=== PATIENT | male | born 1945 | race Caucasian/White ===

== ENCOUNTER → 2020-05-12 08:56 | Outpatient (BNVA) | payer MEDICARE, SELFPAY | PROVIDERS: Family Provider Nurse Practitioner Family; PCP Nurse Practitioner Family; Visit Provider Nurse Practitioner Family | DX: E11.9 Type 2 diabetes mellitus without complications (principal); I10 Essential (primary) hypertension; E78.2 Mixed hyperlipidemia; T78.40XA Allergy, unspecified, initial encounter | CPT/HCPCS: 80053; 80061; 82043; 83036 ==

== ENCOUNTER 2020-09-25 15:22 | Outpatient (CLI) | payer MEDICARE, SELFPAY ==
--- NOTE | 2020-09-25 15:45 | USCV_ITS ---
Matty Randle Age: 75 Gender: M : 1945 Exam Date: 09/25/2020 15:30 Ordering Phys: Erasmo Richardson M.D ([email or web address]) Technologist: Elyssa Marie Exam Location: [facility] [place] Indication: Afib BP: 130 / 70 HR: 92 Rhythm: Sinus Technical Quality: Technically difficult study MEASUREMENTS (Male / Female) Normal Values 2D ECHO LV Diastolic Diameter PLAX 5.7 cm 4.2 - 5.9 / 3.9 - 5.3 cm LV Systolic Diameter PLAX 4.6 cm IVS Diastolic Thickness 1.2 cm 0.6 - 1.0 / 0.6 - 0.9 cm IVS Systolic Thickness 1.3 cm LVPW Diastolic Thickness 1.2 cm 0.6 - 1.0 / 0.6 - 0.9 cm LVPW Systolic Thickness 1.5 cm RV Chamber Size 3.1 cm LVOT Diameter 2.0 cm LV Ejection Fraction 2D Teich 30.0 % LV Ejection Fraction MOD 2C 33.7 % LV Ejection Fraction 2C AL 31.8 % LA Diameter 3.2 cm LA Width 4.2 cm LA Height 5.1 cm RA Width 3.8 cm RA Height 5.9 cm Aorta at Sinotubular Diameter 2.0 cm DOPPLER AV Peak Velocity 88.0 cm/s LVOT Peak Velocity 78.0 cm/s AV Area Cont Eq vti 2.4 cm squared AV Area Cont Eq pk 2.8 cm squared TR Peak Velocity 235.0 cm/s TR Peak Gradient 22.1 mmHg TV Peak E Velocity 67.0 cm/s Right Atrial Pressure 3.0 mmHg Pulmonary Artery Systolic Pressu 25.1 mmHg PV Peak Velocity 85.0 cm/s RV Acceleration Time 0.1 s RV Ejection Time 0.3 s RV AcT/ET 0.4 FINDINGS Left Ventricle Left ventricle is dilated. LV systolic function is moderate to severely reduced with EF of 30-35%. Moderate to severe global hypokinesis is noted. Diastolic function is indeterminate because of atrial fibrillation. Right Ventricle The right ventricle is normal in size and function. Right Atrium The right atrium is normal in size. Left Atrium The left atrium is enlarged Mitral Valve Structurally normal mitral valve without significant stenosis or prolapse. There is trace mitral regurgitation. Aortic Valve Structurally normal aortic valve without significant sclerosis or stenosis. There is trace aortic regurgitation. Tricuspid Valve Structurally normal tricuspid valve without significant stenosis. Mild tricuspid regurgitation is noted. Pulmonary artery systolic pressure is normal. Pulmonic Valve Structurally normal pulmonic valve without significant stenosis. There is no pulmonic regurgitation. Pericardium Normal pericardium without effusion. Aorta Normal ascending aorta dimension. CONCLUSIONS Left ventricle is dilated. LV systolic function is moderate to severely reduced with EF 35 to 40%. Moderate to severe global hypokinesis is noted. Diastolic function is indeterminate because of atrial fibrillation. Left atrium is enlarged. Trace mitral regurgitation is seen. Trace aortic regurgitation is noted. Mild tricuspid regurgitation is noted. No comparison studies are available. Erasmo Richardson MD (Electronically Signed) Final Date: 04 October 2020 19:35 S
== END 2020-09-25 15:23 | disposition home or self-care (01) ==
LOC: US 15:24
PROVIDERS: PCP Nurse Practitioner Family; Visit Provider Internal Medicine
DX: I48.91 Unspecified atrial fibrillation (principal)
CPT/HCPCS: 93306

== ENCOUNTER → 2021-02-11 13:59 | Outpatient (BNVA) | payer MEDICARE, SELFPAY | PROVIDERS: PCP Nurse Practitioner Family; Visit Provider Nurse Practitioner Family | DX: E78.5 Hyperlipidemia, unspecified (principal); E11.9 Type 2 diabetes mellitus without complications; I10 Essential (primary) hypertension; E78.2 Mixed hyperlipidemia | CPT/HCPCS: 80053; 80061; 83036 ==

== ENCOUNTER → 2021-07-08 08:42 | Outpatient (BNVA) | payer MEDICARE, SELFPAY | PROVIDERS: PCP Nurse Practitioner Family; Visit Provider Nurse Practitioner Family | DX: E78.5 Hyperlipidemia, unspecified (principal); E11.9 Type 2 diabetes mellitus without complications; I10 Essential (primary) hypertension; E78.2 Mixed hyperlipidemia | CPT/HCPCS: 80053; 80061; 82043; 83036 ==

== ENCOUNTER → 2022-03-23 11:28 | Outpatient (BNVA) | payer MEDICARE, SELFPAY | PROVIDERS: PCP Nurse Practitioner Family; Visit Provider Nurse Practitioner Family | DX: Z79.899 Other long term (current) drug therapy (principal); I10 Essential (primary) hypertension | CPT/HCPCS: 80053; 83036 ==

== ENCOUNTER 2022-08-04 11:08 | Outpatient (CLI) | payer MEDICARE, SELFPAY ==
--- NOTE | 2022-08-04 11:17 | XR_ITS ---
WS: [id number] Exam: XR foot RT min 3V* [id number] Date/Time of Exam: 08/04/2022 11:33 AM Reason For Exam: [id number] - Other injury of unspecified body region, initi... No fracture or dislocation noted. No soft tissue foreign bodies are identified. Hypertrophic spurring seen along the dorsal margin of the tarsal navicular. XR/XR foot RT min 3V* [id number] IMPRESSION: 1. No fracture or dislocation. 2. Prominent bone spur seen along the dorsal margin of the navicular.
== END 2022-08-04 11:09 | disposition home or self-care (01) ==
LOC: RAD 11:10
PROVIDERS: PCP Nurse Practitioner Family; Visit Provider Nurse Practitioner Family
DX: S91.331A Puncture wound without foreign body, right foot, initial encounter (principal); X58.XXXA Exposure to other specified factors, initial encounter
CPT/HCPCS: 73630

== ENCOUNTER → 2022-08-23 07:44 | Outpatient (BNVA) | payer MEDICARE, SELFPAY | PROVIDERS: PCP Nurse Practitioner Family; Visit Provider Podiatrist Foot & Ankle Surgery | DX: E11.621 Type 2 diabetes mellitus with foot ulcer (principal); L97.512 Non-pressure chronic ulcer of other part of right foot with fat layer exposed; E11.42 Type 2 diabetes mellitus with diabetic polyneuropathy; G62.9 Polyneuropathy, unspecified | CPT/HCPCS: 99204 ==

== ENCOUNTER → 2022-09-26 08:15 | Outpatient (BNVA) | payer MEDICARE, SELFPAY | PROVIDERS: PCP Nurse Practitioner Family; Visit Provider Nurse Practitioner Family | DX: R21 Rash and other nonspecific skin eruption (principal) | CPT/HCPCS: 80053; 85025 ==

== ENCOUNTER 2023-01-16 10:13 | Emergency (ER) | payer MEDICARE, SELFPAY ==
--- NOTE | 2023-01-16 10:55 | XR_ITS ---
WS: [id number] PORTABLE CHEST HISTORY: sob COMPARISON: None available. Very minimal hazy attenuation at the lung bases. No dense areas of consolidation. No pleural effusion or pneumothorax. Cardiac size: Normal. Mediastinum/Aorta: Mild atherosclerosis aorta. No osseous abnormality seen. IMPRESSION: Minimal hazy attenuation of the lung bases. Suspect a small amount of interstitial edema or pneumonit is.
[2023-01-16 11:03] VITALS: BP 163/92; PULSE 78; RESP 18; TEMP 36.6; O2SAT 96; BMI 31.0
[2023-01-16 13:53] LABS: Basophils # 0.1 10^3/uL (0.0-0.1); Basophils % 0.7 %; Eosinophils # 0.2 10^3/uL (0.0-0.8); Eosinophils % 2.2 %; Hematocrit 44.6 % (37-53); Lymphocytes # 1.9 10^3/uL (0.8-4.8); Lymphocytes % 22.9 %; Mean Corpuscular HGB Conc 32.7 g/dL (30-55); Mean Corpuscular Hemoglobin 31.1 pg (27-33); Mean Corpuscular Volume 95.1 fl (82-101); Mean Platelet Volume 10.8 fL (7.4-10.4); Monocytes # 0.7 10^3/uL (0.2-0.9); Monocytes % 8.3 %; Neutrophils % 65.7 %; Nucleated Red Blood Cells % 0 %; Platelet Count 217 10^3/cmm (157-399); Red Blood Count 4.69 10^6/uL (3.85-5.65); Red Cell Distribution Width 12.5 % (12.1-15.1); White Blood Count 8.08 10^3/uL (3.29-11.43)
[2023-01-16 14:22] LABS: Alanine Aminotransferase 26 U/L (0-41); Albumin Level 4.3 g/dL (3.5-5.2); Alkaline Phosphatase 86 U/L (40-130); Anion Gap 10.6 (5-19); Aspartate Amino Transferase 23 U/L (0-40); Blood Urea Nitrogen 14 mg/dL (8-23); Calcium 8.9 mg/dL (8.5-10.5); Carbon Dioxide 31 mmol/L (22-29); Chloride 103 mmol/L (98-107); Globulin 2.4 g/dL (1.3-4.6); Glucose 118 mg/dL (65-115); Osmolality Calculated 292 mOsm/kg (285-295); Potassium 4.6 mmol/L (3.5-5.1); Sodium 140 mmol/L (136-145); Total Bilirubin 1.1 mg/dL (0.15-1.2); Total Protein 6.7 g/dL (6.6-8.7)
--- NOTE | 2023-01-16 15:17 | W.ED.SOB ---
HPI - SOB/Dyspnea General: Chief Complaint: Shortness of Breath/Dyspnea Stated Complaint: SOB Time Seen by Provider: 01/16/23 15:17 Source: patient History of Present Illness: HPI Narrative: 77-year-old male presents emergency room with complaint of shortness of breath overnight he is feeling much better with the time he arrives here. States he got worse last night while he is lying down is better after he sat up. He has been told he has congestive heart failure in the past. MD elicited complaint: shortness of breath Pertinent past history: congestive heart failure Onset (ago): hour(s) Associated symptoms: Deny abdominal pain, chest pain or fever(s) Review of Systems Const: Denies: fever(s) or chills Card: Denies: chest pain Resp: Denies: dyspnea GI: Denies: abdominal pain : Denies: dysuria, urinary frequency or urinary urgency Musc: Denies: neck pain or back pain Skin/Breast: Denies: rash PFSH ED PFSH: Medical History Coronary artery disease HTN (hypertension), benign Hyperlipemia Type 2 diabetes mellitus without complication Hx of myocardial infarction Surgical History H/O hernia repair Family History Father CAD (coronary artery disease) Brother Cancer Mother Diabetes Social History Smoking and tobacco/nicotine status: former use of tobacco/nicotine Alcohol intake: never Substance/Drug Use: never Adopted: No Lives independently: Yes Household members: significant other Housing: House Physical Exam Const: GENERAL APPEARANCE: cooperative and comfortable ORIENTATION/CONSCIOUSNESS: Yes awake, Yes oriented to person, Yes oriented to place and Yes oriented to time HENMT: COMMON NORMALS: normocephalic, atraumatic and hearing grossly normal bilaterally HEAD & SCALP: normocephalic and atraumatic Resp: COMMON NORMALS: normal respiratory effort, No retractions and No use of accessory muscles AUSCULTATION: crackles Cardio: COMMON NORMALS: regular rate, regular rhythm and No murmurs present (Cardio) RATE: regular rate RHYTHM: regular rhythm GI: COMMON NORMALS: Soft to palpation and No hepatosplenomegaly present AUSCULTATION: Yes normoactive bowel sounds PALPATION: Yes Soft to palpation, No Tenderness to palpation present (GI), No Guarding due to palpation present (GI) and Yes No hepatosplenomegaly present Extremity: COMMON NORMALS: normal to inspection, capillary refill normal, no clubbing, cyanosis or edema, no calf tenderness and no pedal edema Neuro: SENSORIUM/ORIENTATION: Yes oriented to person, Yes oriented to place and Yes oriented to time Skin: COMMON NORMALS: no rashes or lesions noted GENERAL SKIN EXAM: no rashes or lesions noted Course Vital Signs: Vital signs: Vital Signs Temperature 97.8 F 01/16/23 11:03 Pulse Rate 88 01/16/23 16:41 Respiratory Rate 18 01/16/23 11:03 Blood Pressure 140/87 01/16/23 16:41 Pulse Oximetry 96 01/16/23 16:41 Oxygen Delivery Me thod Room Air 01/16/23 16:41 MDM - SOB/Dyspnea Medical Decision Making Previous echocardiogram and 30 to 35% will add Lasix 40 daily lisinopril 10 daily and amlodipine 5 daily patient was severely hypertensive when he arrived. He did diurese some in the emergency room. Schedule outpatient echocardiogram and follow-up with cardiology Medical Records I reviewed the patient's medical records. Lab Data I reviewed the patient's lab results. 01/16/23 13:28 01/16/23 13:28 Labs/Radiology: Laboratory Results WBC 8.08 10^3/uL (3.29-11.43) 01/16/23 13:28 RBC 4.69 10^6/uL (3.85-5.65) 01/16/23 13:28 Hgb 14.60 g/dL (11.27-16.99) 01/16/23 13:28 Hct 44.6 % (37-53) 01/16/23 13:28 MCV 95.1 fl (82-101) 01/16/23 13:28 MCH 31.1 pg (27-33) 01/16/23 13:28 MCHC 32.7 g/dL (30-55) 01/16/23 13:28 RDW 12.5 % (12.1-15.1) 01/16/23 13:28 Plt Count 217 10^3/cmm (157-399) 01/16/23 13:28 MPV 10.8 fL (7.4-10.4) H 01/16/23 13:28 Neut % (Auto) 65.7 % 01/16/23 13:28 Lymph % (Auto) 22.9 % 01/16/23 13:28 Bracken % (Auto) 8.3 % 01/16/23 13:28 Eos % (Auto) 2.2 % 01/16/23 13:28 Baso % (Auto) 0.7 % 01/16/23 13:28 Neut # (Auto) 5.30 10^3/uL (1.8-7.7) 01/16/23 13:28 Lymph # (Auto) 1.9 10^3/uL (0.8-4.8) 01/16/23 13:28 Bracken # (Auto) 0.7 10^3/uL (0.2-0.9) 01/16/23 13:28 Eos # (Auto) 0.2 10^3/uL (0.0-0.8) 01/16/23 13:28 Baso # (Auto) 0.1 10^3/uL (0.0-0.1) 01/16/23 13:28 Nucleated RBC % (auto) 0 % 01/16/23 13:28 Nucleated RBCs # 0.0 /100WBC 01/16/23 13:28 Sodium 140 mmol/L (136-145) 01/16/23 13:28 Potassium 4.6 mmol/L (3.5-5.1) 01/16/23 13:28 Chloride 103 mmol/L (98-107) 01/16/23 13:28 Carbon Dioxide 31 mmol/L (22-29) H 01/16/23 13:28 Anion Gap 10.6 (5-19) 01/16/23 13:28 BUN 14 mg/dL (8-23) 01/16/23 13:28 Creatinine 1.2 mg/dL (0.7-1.2) 01/16/23 13:28 GFR Calculation Not Reportable 01/16/23 13:28 Glucose 118 mg/dL (65-115) H 01/16/23 13:28 Calculated Osmolality 292 mOsm/kg (285-295) 01/16/23 13:28 Calcium 8.9 mg/dL (8.5-10.5) 01/16/23 13:28 Total Bilirubin 1.1 mg/dL (0.15-1.2) 01/16/23 13:28 AST 23 U/L (0-40) 01/16/23 13:28 ALT 26 U/L (0-41) 01/16/23 13:28 Alkaline Phosphatase 86 U/L (40-130) 01/16/23 13:28 Total Protein 6.7 g/dL (6.6-8.7) 01/16/23 13:28 Albumin 4.3 g/dL (3.5-5.2) 01/16/23 13:28 Globulin 2.4 g/dL (1.3-4.6) 01/16/23 13:28 All radiology interpretation(s) finalized by discharge Discharge Plan Discharge Patient Disposition: Home Clinical Impression: Congestive heart failure, Hypertension Condition: Stable Prescriptions: New Lasix 40 mg tablet 40 mg PO DAILY Qty: 30 0RF lisinopril 10 mg tablet 10 mg PO DAILY Qty: 30 0RF amlodipine 5 mg tablet 5 mg PO DAILY Qty: 30 0RF No Action aspirin [Adult Aspirin Regimen] 81 mg tablet,delayed release (DR/EC) 81 mg PO DAILY Qty: 90 1RF (DME) Blood Glucose Test Strip See Rx Instructions .ROUTE .MEDSUPPLY Qty: 100 1RF Rx Instructions: test daily before breakfast (DME) OneTouch Verio test strips Strip See Rx Instructions .ROUTE .COMPLEX Qty: 50 0RF Dose Instruction: USE STRIP TO CHECK GLUCOSE ONCE DAILY BEFORE BREAKFAST Rx Instructions: USE STRIP TO CHECK GLUCOSE ONCE DAILY BEFORE BREAKFAST (DME) blood-glucose meter [OneTouch Verio Flex meter] [facility] [place] See Rx Instructions .ROUTE .COMPLEX Qty: 1 0RF Dose Instruction: TEST BLOOD GLUCOSE DAILY PRIOR TO BREAKFAST Rx Instructions: TEST BLOOD GLUCOSE DAILY PRIOR TO BREAKFAST (DME) Dexcom G6 Transmitter Device See Rx Instructions .ROUTE .COMPLEX Qty: 1 0RF Dose Instruction: USE DIRECTED Rx Instructions: USE DIRECTED (DME) lancets [OneTouch Delica Plus Lancet] [facility] See Rx Instructions .ROUTE .COMPLEX Qty: 100 0RF Dose Instruction: USE DIRECTED Rx Instructions: USE DIRECTED (DME) Dexcom G6 Sensor Device See Rx Instructions .ROUTE .COMPLEX Qty: 3 11RF Dose Instruction: USE DIRECTED Rx Instructions: USE DIRECTED loratadine 10 mg Tablet 10 mg PO DAILY carvedilol 6.25 mg tablet 6.25 mg PO DAILY glyburide 5 mg tablet 5 mg PO BID lovastatin 40 mg tablet 40 mg PO DAILY Discharge Orders: Discharge ED (Routine); Ordered 01/16/23 Ordered By: Henry Garay Referrals: Thu Abdullahi FNP [Primary Care Provider] - Discharge Diet: Cardiac and Low Salt Discharge Activity: Increase activity as tolerated Patient Instructions: Opioid Safety, Pain Management Activity Restrictions/Additional Instructions: Thank you for choosing [facility] for your healthcare needs today. Please realize this is an emergency room and that we are providing you with a medical screening exam and this may not be complete and all inclusive of all the testing and or work up that you may need to determine your ailment or severity of your illness. It is very important that you follow up as instructed or that you return to the Emergency Department should you have concerns or if your condition changes or worsens in any way. You are seen today for shortness of breath and elevated blood pressure. Have congestive heart failure and require better control your blood pressure as well as a diuretic. We have scheduled you for an outpatient echocardiogram and follow-up with cardiology. You were given new prescriptions for Lasix to take 40 mg daily lisinopril 10 mg daily and amlodipine 5 mg daily. Continue your carvedilol. Coding Level of Care Code ED Jelly Filter Tender for Jasper Bernal
[2023-01-16] MEDS: lisinopril 20 mg Tablet PO (16:26)
[2023-01-16] MEDS: hyDRALAzine 20 mg/mL INJ 1 mL IVP (16:26)
[2023-01-16] MEDS: amlodipine 10 mg Tablet PO (16:26)
[2023-01-16] MEDS: FUROsemide 10 mg/mL SDV 4mL 40 MG IVP (16:36)
[2023-01-16 16:41] VITALS: BP 140/87; PULSE 88; O2SAT 96
--- NOTE | 2023-01-16 18:02 | DCPLANNER ---
Referral was sent to heart care on 01/16/23 at 1803. Clinic to contact patient.
== END 2023-01-16 17:04 | disposition home or self-care (01) ==
PROVIDERS: Physician Assistant; Emergency Provider Family Medicine; PCP Nurse Practitioner Family
DX: I11.0 Hypertensive heart disease with heart failure (principal); I50.9 Heart failure, unspecified; Z79.82 Long term (current) use of aspirin; Z79.84 Long term (current) use of oral hypoglycemic drugs; Z87.891 Personal history of nicotine dependence; I25.10 Atherosclerotic heart disease of native coronary artery without angina pectoris; E78.5 Hyperlipidemia, unspecified; E11.9 Type 2 diabetes mellitus without complications; I25.2 Old myocardial infarction
CPT/HCPCS: 36415; 71045; 80053; 85025; 96374; 96375; 99284; J0360; J1940

== ENCOUNTER → 2023-01-23 10:09 | Outpatient (BNVA) | payer MEDICARE, SELFPAY | PROVIDERS: PCP Nurse Practitioner Family; Visit Provider Nurse Practitioner Family | DX: I10 Essential (primary) hypertension; E08.621 Diabetes mellitus due to underlying condition with foot ulcer; L97.502 Non-pressure chronic ulcer of other part of unspecified foot with fat layer exposed | CPT/HCPCS: 80053; 80061; 83036 ==

== ENCOUNTER 2023-01-31 09:50 | Outpatient (CLI) | payer MEDICARE, SELFPAY ==
--- NOTE | 2023-01-31 10:00 | USCV_ITS ---
Matty Randle Age: 77 Gender: M : 1945 Exam Date: 01/31/2023 10:08 Ordering Phys: Thu Abdullahi Technologist: Fay Ulloa Exam Location: [facility] [place] Indication: CHF BP: 122 / 81 HR: 87 Rhythm: Sinus Technical Quality: Adequate MEASUREMENTS (Male / Female) Normal Values 2D ECHO LV Diastolic Diameter PLAX 5.3 cm 4.2 - 5.9 / 3.9 - 5.3 cm LV Systolic Diameter PLAX 4.4 cm LV Chamber Size 4.5 cm IVS Diastolic Thickness 1.1 cm 0.6 - 1.0 / 0.6 - 0.9 cm IVS Systolic Thickness 1.7 cm LVPW Diastolic Thickness 1.5 cm 0.6 - 1.0 / 0.6 - 0.9 cm LVPW Systolic Thickness 2.1 cm RV Chamber Size 3.7 cm LVOT Diameter 2.2 cm LV Ejection Fraction 2D Teich 32.3 % LV Ejection Fraction MOD 2C 55.5 % LV Ejection Fraction 2C AL 57.0 % LA Diameter 5.3 cm LA Width 3.9 cm LA Height 2.9 cm RA Width 4.7 cm RA Height 4.0 cm Aorta at Sinotubular Diameter 3.2 cm IVC Diameter 2.1 cm M-MODE Aortic Annulus Diameter 4.3 cm LA Ao Ratio MM 1.2 MV E Point Septal Separation 0.6 cm DOPPLER AV Peak Velocity 114.0 cm/s LVOT Peak Velocity 81.0 cm/s AV Area Cont Eq vti 2.6 cm squared AV Area Cont Eq pk 2.7 cm squared MV Area PHT 4.0 cm squared Mitral E to A Ratio 78.3 MV E' Velocity 55.5 cm/s Mitral E to MV E' Ratio 7.3 Mitral E to LV E' Lateral Ratio 5.4 Mitral E to LV E' Septal Ratio 11.2 TR Peak Velocity 186.8 cm/s TR Peak Gradient 14.0 mmHg TR Mean Velocity 145.1 cm/s TR Mean Gradient 8.9 mmHg TR Velocity Time Integral 45.3 cm TV Peak E Velocity 56.0 cm/s Right Atrial Pressure 3.0 mmHg Pulmonary Artery Systolic Pressu 17.0 mmHg RV Acceleration Time 0.2 s RV Ejection Time 0.3 s RV AcT/ET 0.6 FINDINGS Left Ventricle Technically very limited quality echocardiogram because of poor ultrasonic windows. Grossly LV systolic function is mildly reduced Regional wall motion abnormalities cannot accurately be assessed because of limited visualization Right Ventricle Grossly normal in size and function Right Atrium Not well-visualized Left Atrium Normal normal in size Mitral Valve Grossly normal Aortic Valve Grossly normal. No significant stenosis. Tricuspid Valve Trace tricuspid regurgitation. Pulmonic Valve Not well visualized Pericardium Grossly normal Aorta Normal in size IVC Not well visualized CONCLUSIONS Technically very limited quality echocardiogram because of poor ultrasonic windows. Grossly LV systolic function is mildly reduced Valvular structures are grossly normal. However visualization is is limited Accurate comparison with prior echocardiogram from 2020 is not possible because of limited visualization Erasmo Richardson MD (Electronically Signed) Final Date: 31 January 2023 11:45 S
== END 2023-01-31 09:51 | disposition home or self-care (01) ==
LOC: RAD 09:50
PROVIDERS: PCP Nurse Practitioner Family; Visit Provider Nurse Practitioner Family
DX: I50.9 Heart failure, unspecified (principal)
CPT/HCPCS: 93306

== ENCOUNTER → 2023-04-10 10:14 | Outpatient (BNVA) | payer MEDICARE, SELFPAY | PROVIDERS: PCP Nurse Practitioner Family; Referring Provider Nurse Practitioner Family; Visit Provider Internal Medicine Cardiovascular Disease | DX: E78.2 Mixed hyperlipidemia (principal); I10 Essential (primary) hypertension; I25.10 Atherosclerotic heart disease of native coronary artery without angina pectoris; E11.9 Type 2 diabetes mellitus without complications; I48.92 Unspecified atrial flutter; Z87.891 Personal history of nicotine dependence | CPT/HCPCS: 99213 ==

== ENCOUNTER → 2023-08-16 13:15 | Outpatient (BNVA) | payer MEDICARE, SELFPAY | PROVIDERS: PCP Nurse Practitioner Family; Visit Provider Nurse Practitioner Family | DX: E11.9 Type 2 diabetes mellitus without complications (principal); I10 Essential (primary) hypertension | CPT/HCPCS: 80053; 80061; 82043 ==

== ENCOUNTER → 2023-11-29 14:11 | Outpatient (BNVA) | payer MEDICARE, SELFPAY | PROVIDERS: PCP Nurse Practitioner Family; Visit Provider Internal Medicine Cardiovascular Disease | DX: I25.10 Atherosclerotic heart disease of native coronary artery without angina pectoris (principal); I10 Essential (primary) hypertension; E78.2 Mixed hyperlipidemia; Z87.891 Personal history of nicotine dependence; I25.2 Old myocardial infarction | CPT/HCPCS: 99214 ==

== ENCOUNTER → 2024-04-08 09:10 | Outpatient (BNVA) | payer MEDICARE, SELFPAY | PROVIDERS: PCP Nurse Practitioner Family; Visit Provider Nurse Practitioner Family | DX: E11.9 Type 2 diabetes mellitus without complications (principal) | CPT/HCPCS: 80053; 80061; 83036; 85025 ==

== ENCOUNTER → 2024-10-21 08:58 | Outpatient (BNVA) | payer MEDICARE, SELFPAY | PROVIDERS: PCP Nurse Practitioner Family; Visit Provider Nurse Practitioner Family | DX: I10 Essential (primary) hypertension (principal); L97.502 Non-pressure chronic ulcer of other part of unspecified foot with fat layer exposed; E08.621 Diabetes mellitus due to underlying condition with foot ulcer | CPT/HCPCS: 80053; 80061; 83036 ==

== ENCOUNTER → 2024-12-04 12:16 | Outpatient (BNVA) | payer MEDICARE, SELFPAY | PROVIDERS: PCP Nurse Practitioner Family; Visit Provider Internal Medicine Cardiovascular Disease | DX: I25.10 Atherosclerotic heart disease of native coronary artery without angina pectoris (principal); E78.5 Hyperlipidemia, unspecified; I10 Essential (primary) hypertension | CPT/HCPCS: 99214 ==